=== PATIENT | male | born 1940 | race Native Hawaiian/Other Pacific Islander ===

== ENCOUNTER 2017-04-16 11:45 | Outpatient (CLI) | payer OTHER | END 2017-04-16 12:45 | disposition home or self-care (01) | LOC: LABW 11:45 | DX: R97.20 Elevated prostate specific antigen [PSA] (principal); Z12.5 Encounter for screening for malignant neoplasm of prostate | CPT/HCPCS: 36415; 84153 ==

== ENCOUNTER 2017-10-23 09:22 | Outpatient (CLI) | payer OTHER | END 2017-10-23 18:07 | disposition home or self-care (01) | LOC: LABW 09:22 | PROVIDERS: Internal Medicine Cardiovascular Disease | DX: E78.4 Other hyperlipidemia (principal); Z09 Encounter for follow-up examination after completed treatment for conditions other than malignant neoplasm | CPT/HCPCS: 36415; 80061; 80076 ==